=== PATIENT | female | born 1980 | race Hispanic/Latino ===

== ENCOUNTER 2018-03-16 15:47 | Outpatient (CLI) | payer OTHER | END 2018-03-16 15:48 | disposition home or self-care (01) | LOC: DTY/OP 15:47 | PROVIDERS: ATTEND Surgery | DX: E66.01 Morbid (severe) obesity due to excess calories (principal) | CPT/HCPCS: 97802 ==

== ENCOUNTER 2018-04-14 15:58 | Outpatient (CLI) | payer OTHER | END 2018-04-14 15:59 | disposition home or self-care (01) | LOC: DTY/OP 15:58 | PROVIDERS: ATTEND Surgery | DX: E66.01 Morbid (severe) obesity due to excess calories (principal) | CPT/HCPCS: 97802 ==

== ENCOUNTER 2018-05-25 16:15 | Inpatient (IN) | payer OTHER ==
[2018-06-04] MEDS ORDERED: Heparin 5,000 UNITS/ML VIAL ONE (09:24)
[2018-06-04] MEDS ORDERED: Midazolam HCl 2 mg/2 ml Vial ONE ×3 (10:13→13:01)
[2018-06-04] MEDS ORDERED: PROPOFOL 200 MG/20 ML VIAL ONE (10:51)
[2018-06-04] MEDS ORDERED: Ondansetron PF 4 MG/2 ML Vial ONE (10:51)
[2018-06-04] MEDS ORDERED: Dexamethasone 20 MG/5 ML VIAL ONE (10:51)
[2018-06-04] MEDS ORDERED: Ketorolac Tromethamine 30 MG/ML VIAL ONE (10:51)
[2018-06-04] MEDS ORDERED: Rocuronium Bromide 10 MG/ML (10ML VIAL) ONE (10:51)
[2018-06-04] MEDS ORDERED: Scopolamine 1.5 mg/72 hour Patch ONE (12:37)
[2018-06-04] MEDS ORDERED: Fentanyl 100 MCG/2 ML VIAL ONE ×5 (12:40→15:18)
[2018-06-04] MEDS ORDERED: Bupivacaine/Epinephrine 0.25% 30 ML VIAL ONE (12:41)
[2018-06-04] MEDS ORDERED: SUGAMMADEX SODIUM 500 MG/5 ML VIAL ONE (14:00)
[2018-06-04] MEDS ORDERED: Ondansetron PF 4 MG/2 ML Vial IVP PRN (14:28)
[2018-06-04] MEDS ORDERED: diphenhydrAMINE 25 MG CAP PO PRN (14:28)
[2018-06-04] MEDS ORDERED: Naloxone HCl 0.4 mg/ml Vial IV PRN (14:28)
[2018-06-04] MEDS ORDERED: Zolpidem Tartrate 5 MG TAB PO PRN (14:28)
[2018-06-04] MEDS ORDERED: Promethazine HCl 25 MG/ML VIAL IM PRN ×2 (14:28→14:29)
[2018-06-04] MEDS ORDERED: fentaNYL Citrate/PF 2,000 MCG in Sodium Chloride 0.9% 60 ML IV PRN (14:28)
[2018-06-04] MEDS ORDERED: diphenhydrAMINE 50 MG/ML VIAL IM PRN (14:28)
[2018-06-04] MEDS ORDERED: diphenhydrAMINE 50 MG/ML VIAL IVP PRN ×2 (14:28→14:40)
[2018-06-04] MEDS ORDERED: Ondansetron HCl/PF 4 MG/2 ML Vial IVP PRN (14:29)
[2018-06-04] MEDS ORDERED: Promethazine HCl 25 MG/ML VIAL SLOW IVP PRN (14:29)
[2018-06-04] MEDS ORDERED: Communication Order-Pharmacy FS SCH (14:30)
[2018-06-04] MEDS ORDERED: Promethazine HCl 25 MG/ML VIAL ONE (14:32)
[2018-06-04] MEDS ORDERED: Hydrocodone-Acetamin 15 ML UDCUP PO PRN (14:40)
[2018-06-04] MEDS ORDERED: Dextrose 50% Abboject 50 ML SYRINGE SLOW IVP PRN (14:40)
[2018-06-04] MEDS ORDERED: hydrALAZINE 20 MG/ML VIAL SLOW IVP PRN (14:40)
[2018-06-04] MEDS ORDERED: Dextrose 5% in Water 1,000 ML IV PRN (14:40)
[2018-06-04] MEDS ORDERED: Labetalol HCl 100 MG/20 ML VIAL ONE (15:36)
[2018-06-04] MEDS: D5 1/2 NS w/20 mEq KCL 1,000 ML IV SCH ×3 (15:53→23:40)
[2018-06-04] MEDS: Ondansetron PF 4 MG/2 ML Vial IVP PRN (16:38)
[2018-06-04 17:04] VITALS: BMI 35.6
[2018-06-04] MEDS: Acetaminophen 1,000 MG in Premix Bag 1 BAG IVPB SCH ×2 (18:09→23:35)
[2018-06-04] MEDS: Promethazine HCl 25 MG/ML VIAL IM PRN ×2 (18:10→20:48)
--- NOTE | 2018-06-04 20:21 | OP ---
DATE OF PROCEDURE: 06/04/2018 PREOPERATIVE DIAGNOSES: 1. Morbid obesity with a body mass index of 36. 2. Hypertension. 3. Dyslipidemia. POSTOPERATIVE DIAGNOSES: 1. Morbid obesity with a body mass index of 36. 2. Hypertension. 3. Dyslipidemia. PROCEDURES PERFORMED: Laparoscopic sleeve gastrectomy, [place] staple line reinforcements, and 38-[place]ish bougie. ANESTHESIA: General. ESTIMATED BLOOD LOSS: 50 mL. COMPLICATIONS: None. SPECIMEN: Stomach. FINDINGS: Normal postoperative EGD. DESCRIPTION OF PROCEDURE: The patient was taken to the operating room and laid supine on the operating room table. After general anesthetic was obtained, OG tube was used to decompress the stomach. The abdomen was prepped and draped in a sterile fashion. Left subcostal 5 mm Optiview trocar was placed in usual fashion and high-flow pneumoperitoneum was obtained. Left and right abdominal 12 mm ports as well as a right subcostal 5 mm port were placed under direct visualization. A 5 mm incision made at the xiphoid and Irwin was used to raise the liver off the GE junction. Short gastrics were taken down from mid body of stomach to left guillermina of diaphragm. Left guillermina, posterior fundus, and angle of His were completely dissected using the LigaSure. Short gastrics were taken down to a distance of 6 cm proximal to the pylorus. The bougie was brought in and its tip left in the antrum of the stomach. The OG tube was removed. Multiple loads of the [place] stapling device with [place] staple line reinforcements and 38-[place] bougie were used to perform the sleeve. The first was fired up at a distance of 6 cm proximal to the pylorus, angled up towards the incisura. Multiple loads were then fired up along the bougie. Stomach was completely transected at the angle of His. Stomach was removed from the left abdominal incision. This fascial defect was closed using GraNee needle and 0 Vicryl tie. A few bleeders on the upper part of the staple line were clipped using the laparoscopic clip. Bougie was removed and the EGD was passed through esophagus stomach to the level of duodenum without obstruction. There was no stricture at the incisura. There was no involvement of the GE junction. EGD scope was used to decompress the stomach, it was pulled and removed. Irwin retractor was removed under direct visualization without bleeding. All ports were removed under direct visualization without bleeding. Pneumoperitoneum was let down. The Vicryl was used to close the fascial defect from the left abdominal incisions. All ports were closed using 4-0 Monocryl and Dermabond. The patient was sent to Recovery in stable condition. All instrument counts, needle counts, and lap counts were correct. Job ID: [id number]
[2018-06-05] MEDS: Ondansetron PF 4 MG/2 ML Vial IVP PRN (02:52)
[2018-06-05 04:52] LABS: #Lymphocytes 1.2 thou/uL (1.20-3.40); #Monocytes 0.7 thou/uL (0.11-0.59); #Neutrophils 10.2 thou/uL (1.40-6.50); %Basophils 0.1 % (0.0-1.0); %Eosinophils 0.1 % (0.0-10.0); %Lymphocytes 10.1 % (21.0-51.0); %Monocytes 5.6 % (0.0-10.0); %Neutrophils 84.1 % (42.0-75.0); Hemoglobin 12.6 g/dL (12.0-16.0); Mean Corpuscular HGB CONC 35.1 g/dL (32.0-36.0); Mean Corpuscular Hemoglobin 30.5 pg (27.0-31.0); Mean Platelet Volume 8.5 fL (7.4-10.4); Platelet Count 173 thou/uL (130-400); RBC Distribution Width 12.1 % (11.5-14.5); Red Blood Cell (RBC) Count 4.13 mill/uL (4.20-5.40); White Blood Cell (WBC) Count 12.1 thou/uL (4.8-10.8)
[2018-06-05 05:07] LABS: Anion Gap 11 mmol/L (10-20); BUN (Urea Nitrogen) 9 mg/dL (7.0-18.7); Calc. Creatinine Clearance 156 mL/min (70-130); Carbon Dioxide 21 mmol/L (22-29); Chloride 104 mmol/L (98-107); Estimated GFR-MDRD Greater than 90; Glucose 150 mg/dL (70-105); Potassium 4.1 mmol/L (3.5-5.1); Sodium 132 mmol/L (136-145)
[2018-06-05] MEDS: Acetaminophen 1,000 MG in Premix Bag 1 BAG IVPB SCH ×2 (05:11→13:58)
[2018-06-05] MEDS: Promethazine HCl 25 MG/ML VIAL IM PRN (05:27)
--- NOTE | 2018-06-05 07:33 | PRG ---
DATE OF SERVICE: 06/05/2018 SUBJECTIVE: Postop day 1, gastric sleeve. Ms. Hanna had some nausea overnight. She has spit up a little bit of blood this morning. Her blood pressure has been high. PHYSICAL EXAMINATION: VITAL SIGNS: Pulse 105, respirations 20, O2 saturation 95% on room air. Blood pressure is 128/62 after hydralazine, emesis overnight. Multiple voids. ABDOMEN: Soft, appropriately tender. Wounds are healing well. CHEST: Clear. HEART: Regular rate and rhythm. LABORATORY DATA: White blood cell count is 12, hemoglobin is 12, platelet count is 173. Creatinine is 0.67. ASSESSMENT: Postop day 1, lap gastric sleeve with postop nausea. PLAN: Supportive care. Home after lunch if nausea improved. Job ID: [id number]
[2018-06-05] MEDS ORDERED: Pantoprazole 40 MG VIAL IVP SCH (09:00)
[2018-06-05] MEDS: D5 1/2 NS w/20 mEq KCL 1,000 ML IV SCH (09:12)
[2018-06-05 11:49] VITALS: TEMP 98.7
[2018-06-05 13:50] VITALS: BP 140/88
== END 2018-06-05 13:56 | disposition home or self-care (01) | DRG 621 ==
LOC: SURG A 06-04 08:51 → EDSTATUS 06-04 16:15 → SURG A 06-04 16:45
PROVIDERS: ADMIT Surgery; ATTEND Surgery
PROC: 0DB64Z3 Excision of Stomach, Percutaneous Endoscopic Approach, Vertical (ICD-10-PCS; principal; 2018-06-05)
DX: E66.01 Morbid (severe) obesity due to excess calories (principal); I10 Essential (primary) hypertension; E78.5 Hyperlipidemia, unspecified; Z79.899 Other long term (current) drug therapy; Z68.36 Body mass index [BMI] 36.0-36.9, adult
CPT/HCPCS: 36415; 80048; 85025; 88307; 88312; 88342; 94760; C9113; J0131; J0360; J0690; J1644; J2250; J2405; J2550; J3010; J3490

== ENCOUNTER 2018-05-25 16:30 | Outpatient (CLI) | payer OTHER ==
--- NOTE | 2018-05-25 17:34 | RAD ---
XR Chest Pa Lat STANDARD History: [Preop] Comparison: Radiograph 2015 Findings: The lungs are clear. No pneumothorax or effusion. Cardiac silhouette and mediastinal contou rs are within normal limits. Impression: No acute intrathoracic abnormality.
[2018-05-25 18:02] LABS: #Basophils 0.1 thou/uL (0.0-0.2); #Eosinphils 0.4 thou/uL (0.0-0.7); #Lymphocytes 2.6 thou/uL (1.20-3.40); #Monocytes 0.5 thou/uL (0.11-0.59); #Neutrophils 5.6 thou/uL (1.40-6.50); %Basophils 0.8 % (0.0-1.0); %Eosinophils 4.1 % (0.0-10.0); %Lymphocytes 28.5 % (21.0-51.0); %Monocytes 5.2 % (0.0-10.0); %Neutrophils 61.4 % (42.0-75.0); Hemoglobin 13.4 g/dL (12.0-16.0); Mean Corpuscular HGB CONC 34.5 g/dL (32.0-36.0); Mean Corpuscular Hemoglobin 30.3 pg (27.0-31.0); Mean Corpuscular Volume 87.9 fL (78.0-98.0); Mean Platelet Volume 9.2 fL (7.4-10.4); Platelet Count 181 thou/uL (130-400); RBC Distribution Width 12.3 % (11.5-14.5); Red Blood Cell (RBC) Count 4.41 mill/uL (4.20-5.40); White Blood Cell (WBC) Count 9.1 thou/uL (4.8-10.8)
[2018-05-25 18:20] LABS: Hemoglobin A1c 4.6 % (4.0-6.0)
[2018-05-25 18:22] LABS: BHCG - Serum Negative (NEGATIVE); Pregs Control Background? CLEAR/WHITE (CLR/WHITE); Pregs Control Bar Appear? YES (CONTROL BAR)
[2018-05-25 18:28] LABS: ALT (SGPT) 44 U/L (8-55); AST (SGOT) 29 U/L (5-34); Albumin 3.9 g/dL (3.5-5.0); Alkaline Phosphatase 68 U/L (40-150); Anion Gap 12 mmol/L (10-20); BUN (Urea Nitrogen) 12 mg/dL (7.0-18.7); Bilirubin, Direct 0.2 mg/dL (0.1-0.3); Bilirubin, Total 0.7 mg/dL (0.2-1.2); Calc. Creatinine Clearance 0 mL/min (70-130); Calcium 9.7 mg/dL (7.8-10.44); Carbon Dioxide 23 mmol/L (22-29); Chloride 106 mmol/L (98-107); Estimated GFR-MDRD Greater than 90; Globulin 3.1 g/dL (2.4-3.5); Glucose 94 mg/dL (70-105); Potassium 3.5 mmol/L (3.5-5.1); Sodium 137 mmol/L (136-145)
--- NOTE | 2018-05-26 22:31 | EKG ---
Test Reason : Blood Pressure : / mmHG Vent. Rate : 077 BPM Atrial Rate : 077 BPM P-R Int : 140 ms QRS Dur : 076 ms QT Int : 382 ms P-R-T Axes : 020 056 022 degrees QTc Int : 432 ms Normal sinus rhythm with sinus arrhythmia Baseline artifact precludes adequate interpretation. Cannot rule out Anterior infarct , age undetermined Abnormal ECG No previous ECGs available Confirmed by Chad CALDERÓN ([id number]) on 05/26/2018 10:30:47 PM Referred By: DARRYL Confirmed By:Chad CALDERÓN
== END 2018-05-25 16:31 | disposition home or self-care (01) ==
LOC: LABBT 16:30
PROVIDERS: ATTEND Surgery
DX: Z01.818 Encounter for other preprocedural examination (principal); E66.01 Morbid (severe) obesity due to excess calories
CPT/HCPCS: 71046; 80053; 80076; 83036; 84703; 85025; 93005; 93010